=== PATIENT | male | born 1940 | race Caucasian/White ===

== ENCOUNTER 2019-07-10 08:34 | Outpatient (CLI) | payer MEDICARE ==
--- NOTE | 2019-07-10 09:48 | MRI ---
MRI Lower Ext Jt Lt knee WO Con HISTORY: Severe knee pain status post fall. COMPARISON: None. FINDINGS: The anterior as well as posterior cruciate ligaments are intact. The lateral meniscus is normal in shape and appearance. There is a undersurface flap type tear of the body and posterior horn region of the medial meniscus. There are some very mild marrow edema changes along the posterior edge of the tibia. There are also some edema changes of the tibia at the tibiofibular joint. Medial lateral collateral ligaments and iliotibial band regions are unremarkable. The patellar articular cartilage is intact. The medial lateral patellar retinaculum are normal the pa tellar tendon is normal. There is a near-complete tear of the quadriceps tendon. This is not included in its entirety on all o f the sequences. The tear occurs approximately 3.5 cm proximal to the patellar attachment. The tear appears to involve the entirety of the vastus intermedius component and quadriceps components of the quadriceps tendon. The central layer of the quadriceps tendon shows some intact fibers from the vastus medialis muscle contribution to the central layer. The vastus lateralis component appears torn . There is not a significant retraction to the visualized portion of the quadriceps tendon. This portion of the tendon is included only on the uppermost portion of some of the slices. IMPRESSION: 1. Almost complete quadriceps tendon tear as described above, there still appears be some fibers rela jaguar to the vastus medialis muscle contribution to the quadriceps tendon that are still intact.. The quadriceps muscle and vastus intermedius components appear completely torn. 2. Nondisplaced flap type tear the posterior horn and body region of the medial meniscus.
== END 2019-07-10 08:35 | disposition home or self-care (01) ==
LOC: SCSMRI 08:34
PROVIDERS: ATTEND Nurse Practitioner Adult Health
DX: M25.562 Pain in left knee (principal); S76.112A Strain of left quadriceps muscle, fascia and tendon, initial encounter; S83.242A Other tear of medial meniscus, current injury, left knee, initial encounter

== ENCOUNTER 2019-07-16 08:12 | Day surgery (SDC) | payer MEDICARE ==
[2019-07-16] MEDS ORDERED: Midazolam HCl 2 mg/2 ml Vial ONE (09:51)
[2019-07-16] MEDS ORDERED: Fentanyl 100 MCG/2 ML VIAL ONE ×4 (09:51→13:11)
[2019-07-16 10:05] LABS: #Eosinphils 0.3 thou/uL (0.0-0.7); #Lymphocytes 1.5 thou/uL (1.20-3.40); #Monocytes 0.5 thou/uL (0.11-0.59); #Neutrophils 4.6 thou/uL (1.40-6.50); %Basophils 0.5 % (0.0-1.0); %Eosinophils 4.9 % (0.0-10.0); %Lymphocytes 21.2 % (21.0-51.0); %Monocytes 6.6 % (0.0-10.0); %Neutrophils 66.8 % (42.0-75.0); Hemoglobin 13.9 g/dL (14.0-18.0); Mean Corpuscular HGB CONC 33.5 g/dL (32.0-36.0); Mean Corpuscular Hemoglobin 32.7 pg (27.0-31.0); Mean Corpuscular Volume 97.7 fL (78.0-98.0); Mean Platelet Volume 6.6 fL (7.4-10.4); Platelet Count 372 thou/uL (130-400); Red Blood Cell (RBC) Count 4.26 mill/uL (4.70-6.10); White Blood Cell (WBC) Count 6.8 thou/uL (4.8-10.8)
[2019-07-16] MEDS ORDERED: Ropivacaine 0.2% 550 ML 550 ML NERVE BLCK SCH (10:05)
[2019-07-16] MEDS ORDERED: Promethazine HCl 25 MG/ML VIAL IM PRN ×2 (10:05→12:15)
[2019-07-16] MEDS ORDERED: Fentanyl 100 MCG/2 ML VIAL IV PRN (10:05)
[2019-07-16] MEDS ORDERED: Ondansetron PF 4 MG/2 ML Vial IVP PRN (10:05)
[2019-07-16] MEDS ORDERED: Acetaminophen 325 MG TAB PO PRN (10:05)
[2019-07-16] MEDS ORDERED: Zolpidem Tartrate 5 MG TAB PO PRN (10:05)
[2019-07-16] MEDS ORDERED: HYDROcodone/Acetaminophen 10/325 mg Tablet PO PRN ×2 (10:05)
[2019-07-16] MEDS ORDERED: traMADol HCl 50 MG TAB PO PRN ×2 (10:05)
[2019-07-16 10:10] LABS: INR-International Normal Ratio 0.9; PTT 26.5 SEC (22.9-36.1); Prothrombin Time 12.3 SEC (12.0-14.7)
[2019-07-16 10:25] LABS: Anion Gap 12 mmol/L (10-20); BUN (Urea Nitrogen) 14 mg/dL (8.4-25.7); Calc. Creatinine Clearance 0 mL/min (70-130); Calcium 9.3 mg/dL (7.8-10.44); Carbon Dioxide 30 mmol/L (23-31); Chloride 105 mmol/L (98-107); Estimated GFR-MDRD 73; Glucose 111 mg/dL (83-110); Sodium 142 mmol/L (136-145)
[2019-07-16] MEDS ORDERED: Lidocaine 1% PF 5 ML VIAL ONE (10:40)
[2019-07-16] MEDS ORDERED: PROPOFOL 200 MG/20 ML VIAL ONE (10:40)
[2019-07-16] MEDS ORDERED: Bupivacaine HCl 0.5%/Epinephrine 1:200,000/PF 30 ml Vial ONE (10:40)
[2019-07-16] MEDS ORDERED: Ondansetron PF 4 MG/2 ML Vial ONE (10:40)
[2019-07-16] MEDS ORDERED: Propofol 500 MG/50 ML VIAL ONE (10:59)
[2019-07-16] MEDS ORDERED: Meperidine HCl/PF 25 MG/ML VIAL SLOW IVP PRN (12:15)
[2019-07-16] MEDS ORDERED: Promethazine HCl 25 MG/ML VIAL SLOW IVP PRN (12:15)
[2019-07-16] MEDS ORDERED: HYDROcodone/Acetaminophen 5/325 mg Tablet ONE (14:38)
--- NOTE | 2019-07-17 10:16 | OP ---
DATE OF PROCEDURE: 07/16/2019 POSTOPERATIVE DIAGNOSIS: Left quadriceps tendon rupture. POSTOPERATIVE DIAGNOSIS: Left quadriceps tendon rupture. PROCEDURE PERFORMED: Left quad tendon repair. LITHARGE MILL OPERATOR: Edgar Chavez PA-C. ANESTHESIA: Staff, MD Juan David. The patient received an LMA, femoral injection ESTIMATED BLOOD LOSS: Less than 30 mL. TOURNIQUET TIME: 36 minutes at 350 mmHg. ANTIBIOTICS: Ancef 2 g. IMPLANTS: None. COMPLICATION: None. HISTORY OF PRESENT ILLNESS: Mr. Acevedo is an 79-year-old male status post quad rupture coming down the stairs, ruptured his knees, unable to extend it. Had VMO in place and intact, but a quad rupture of the rectus intermedius and the portion of the vastus lateralis. I discussed the risks and benefits of repair to include pain, scar, bleeding, infection, damage to vital structures, decreased range of motion and strength, fracture, need for further surgeries can be made by surgery intervention, loss of life or limb. The patient understood the risks and benefits of the procedure and elected to proceed. DESCRIPTION OF PROCEDURE: Time-out was performed. The patient's left lower extremity as the operative site based on site, consents, and marking. After time-out, the patient's left upper extremity was prepped and draped in sterile fashion. Tourniquet was brought up and left for 36 minutes. A midline incision was made, came down through the skin, came down, to the quadriceps I felt the patient's quadriceps. We were able to find what portion of the rectus and the intermedius portion of the lateralis was torn. VMO was intact. There was about a centimeter of tendon still attached to the knee. Therefore, we ran a locking stitch up through and back with #5 Ethibond, passed it through the remainder of tendon and pulled into place, so that knot came back with #2 Vicryls which we closed with [id number] to close remainder of the stitch. We then over-ran that with # 2 Stratafix stitch to close down the fascia superiorly and inferiorly coming and closed the remainder of the rent that came up through kind of the VMO down around and into the vastus lateralis obliquus. Being happy with the repair, the patient went from 0 to 30 degrees. We made a little small area to pass the sutures and buried the knots so it would not be prominent of the #5 Ethibond, cut the ends off. We then closed subcu and fascia planes with #2 and mary. The patient will be kept in extension for 4 weeks and begin range of motion, at that time to be kept in his knee immobilizer. Remove his dressings in 3 or 4 days. Sent home with pain medications. Job ID: [id number] [facility]
== END 2019-07-16 15:16 | disposition home or self-care (01) ==
LOC: SDC 08:12
PROVIDERS: ATTEND Orthopaedic Surgery
PROC: 0KNR0ZZ Release Left Upper Leg Muscle, Open Approach (ICD-10-PCS; principal; 2019-07-16)
DX: S76.112A Strain of left quadriceps muscle, fascia and tendon, initial encounter (principal); W10.9XXA Fall (on) (from) unspecified stairs and steps, initial encounter; Z79.82 Long term (current) use of aspirin; Z79.899 Other long term (current) drug therapy
CPT/HCPCS: 27385; 80048; 85025; 85610; 85730; 93005; A4306; 36415; 93010; J0670; J0690; J2001; J2250; J2405; J2704; J2795; J3010; L1830

== ENCOUNTER 2019-08-05 10:18 | Emergency (ER) | payer MEDICARE | END 2019-08-05 11:03 | disposition home or self-care (01) | LOC: ERS 10:18 | DX: S60.512A Abrasion of left hand, initial encounter (principal); M25.512 Pain in left shoulder; R07.81 Pleurodynia; M54.9 Dorsalgia, unspecified; K21.9 Gastro-esophageal reflux disease without esophagitis; Z86.73 Personal history of transient ischemic attack (TIA), and cerebral infarction without residual deficits; E78.5 Hyperlipidemia, unspecified; E78.00 Pure hypercholesterolemia, unspecified; V43.62XA Car passenger injured in collision with other type car in traffic accident, initial encounter | CPT/HCPCS: 99284 ==

== ENCOUNTER 2019-10-30 08:51 | Outpatient (CLI) | payer MEDICARE ==
--- NOTE | 2019-10-30 09:41 | MRI ---
EXAM: MRI left shoulder PROVIDED CLINICAL HISTORY: Pain COMPARISON: None FINDINGS: Evaluation is limited by patient motion. There is a high-grade partial-thickness tear involving the supraspinatus tendon at the footplate. Com ponents of the rotator cuff appear otherwise grossly intact. The long head biceps tendon appears intact and normally located. There is heterogeneous signal intensity in the region of the superior labrum that could reflect SLAP tear. The glenoid labrum and glenohumeral articular cartilage are suboptimally evaluated in the absence of joint distention, appearing otherwise grossly normal. The amount of fluid within the glenohumeral joint is physiologic. There is no significant subacromial subdeltoid bursal fluid evident. Acromioclavicular joint degenerative changes are seen without significant mass effect upon the subjac ent supraspinatus. Rotator cuff muscular volume appears preserved. No focal concerning regional marrow or muscular signa l abnormality evident. IMPRESSION: 1. High-grade partial-thickness undersurface tear involving the distal supraspinatus tendon at the fo otplate. 2. Possible SLAP tear. 3. Acromioclavicular joint osteoarthrosis.
== END 2019-10-30 08:52 | disposition home or self-care (01) ==
LOC: SCSMRI 08:51 → TBSIIMAG 08:52
PROVIDERS: ATTEND Orthopaedic Surgery
DX: M75.112 Incomplete rotator cuff tear or rupture of left shoulder, not specified as traumatic (principal); M25.512 Pain in left shoulder; M19.012 Primary osteoarthritis, left shoulder

== ENCOUNTER 2020-01-04 09:38 | Emergency (ER) | payer MEDICARE ==
[2020-01-04] MEDS ORDERED: Dexamethasone 4 mg/ml Vial ONE (11:31)
== END 2020-01-04 12:00 | disposition home or self-care (01) ==
LOC: ERS 09:38
DX: M54.5 Low back pain (principal); K21.9 Gastro-esophageal reflux disease without esophagitis; E78.00 Pure hypercholesterolemia, unspecified; Z86.73 Personal history of transient ischemic attack (TIA), and cerebral infarction without residual deficits
CPT/HCPCS: 96372; 99283; J1100

== ENCOUNTER 2020-02-18 15:17 | Outpatient (CLI) | payer MEDICARE ==
--- NOTE | 2020-02-18 16:11 | RAD ---
4 views lumbar spine: 02/18/2020 COMPARISON: None HISTORY: Scoliosis, pain, prior fall FINDINGS: There is lumbar spine levoscoliosis measuring approximately 20 degrees from superior endpla te of L1 through inferior endplate of L4. There is atherosclerotic calcification of the abdominal aorta. There is disc space narrowing with degenerative endplate change and anterior osteophyte formation at L2-3, L3-4, L4-5, and L5-S1. There is right lateral disc space narrowing with sclerotic endplate change and rightward osteophyte f ormation at L3-4. Multilevel lower lumbar spine facet hypertrophy present, most significant at L4-5 and L5-S1. No anterolisthesis or retrolisthesis is noted on the neutral, flexion or extension lateral views. IMPRESSION: Multilevel degenerative change. No acute osseous abnormality.
== END 2020-02-18 15:18 | disposition home or self-care (01) ==
LOC: BICRAD 15:17
PROVIDERS: ATTEND Anesthesiology Pain Medicine
DX: S32.009G Unspecified fracture of unspecified lumbar vertebra, subsequent encounter for fracture with delayed healing (principal); M41.9 Scoliosis, unspecified; M47.816 Spondylosis without myelopathy or radiculopathy, lumbar region; M47.817 Spondylosis without myelopathy or radiculopathy, lumbosacral region
CPT/HCPCS: 72110

== ENCOUNTER 2020-03-14 09:19 | Outpatient (CLI) | payer MEDICARE ==
--- NOTE | 2020-03-14 11:28 | MRI ---
MRI LUMBAR SPINE WITHOUT CONTRAST: Date: 03/14/2020 INDICATION: Low back pain. Scoliosis of lumbar spine. FINDINGS: Prominent degenerative changes of the lumbar spine with scoliotic curvature is seen with convexity to the left measured at 23 degrees with apex at the L3-4 level. Degenerative disc changes and degenerat poppy end plate changes are most pronounced at the L3-4 level. Vertebral body height appears preserved in the sagittal projection. L1-2: No significant disc bulge. No central canal or foraminal stenosis. L2-3: Broad based disc bulge flattens the thecal sac. Facet hypertrophy. Mild to moderate central ca nal stenosis. Mild left foraminal stenosis secondary to the scoliotic curvature, disc bulge, and face t hypertrophy. L3-4: Prominent degenerative disc and end plate changes. Broad based disc bulge/protrusions flatten the thecal sac. Prominent facet and ligamentous hypertrophy. Moderate to severe central canal stenosi s. Severe right foraminal stenosis secondary to disc osteophyte complex, curvature, and facet hypertr ophy. L4-5: Broad based disc bulge centrally and to the right with disc osteophyte complex projecting to t he right. Facet and ligamentous hypertrophy. Moderate central canal stenosis. Right foraminal stenosi s. L5-S1: Diffuse disc bulge abuts the thecal sac. Mild facet hypertrophy. No significant central canal stenosis. Mild left foraminal stenosis secondary to disc osteophyte complex and facet hypertrophy. IMPRESSION: Degenerative disc changes involving the lumbar spine with scoliotic curvature. Central canal and fora carlos stenosis as described above. POS: JENNIFER
== END 2020-03-14 09:20 | disposition home or self-care (01) ==
LOC: TBSIIMAG 09:19
PROVIDERS: ATTEND Anesthesiology Pain Medicine
DX: M41.9 Scoliosis, unspecified (principal); M47.816 Spondylosis without myelopathy or radiculopathy, lumbar region; M48.061 Spinal stenosis, lumbar region without neurogenic claudication; M48.07 Spinal stenosis, lumbosacral region
CPT/HCPCS: 72148